=== PATIENT | female | born 1990 | race Caucasian/White ===

== ENCOUNTER 2016-11-01 11:53 | Emergency (ER) | payer OTHER ==
[~2016-11-01] VITALS: Ht 154.9 cm; Wt 48.1 kg
[2016-11-01 11:55] VITALS: TEMP 36.8; Ht 154.9 cm; Wt 48.1 kg
[2016-11-01] MEDS ORDERED: SODIUM CHLORIDE 0.9% 1000ML 1,000 ML IV STA (12:20)
[2016-11-01] MEDS ORDERED: PROMETHAZINE HCL INJ 25 MG in SODIUM CHLORIDE 0.9% 50ML 50 ML IV STA (12:20)
--- NOTE | 2016-11-01 12:21 | EMERGENCY ROOM VISIT NOTE ---
History Report prepared by Tal: Flakita Gonzalez Under the Supervision of: Dr. Cas Knight D.O. First contact with patient: 12:12 Chief Complaint: ILLNESS Stated Complaint: TESTED FOR MENINGITIS History of Present Illness The patient is a 26 year old female who presents to the Emergency Room with complaints of worsening headache beginning 2 days prior to arrival. The patient has been experiencing a migraine and neck stiffness. She also notes vomiting and nausea. She went to [place] [facility] 2 days ago and left due to the long wait. She then yesterday saw her PCP at [facility] and was told to go back to [place] ED. She went back to the ED and had testing down including CT scan. All testing was normal. This morning the patient went back to her PCP at [facility] and was told to come to ED for meningitis testing. 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 She denies fever, diarrhea, or cough. The patient is on control. Source of History: patient Onset: 2 days [employer] Position: other (global) Quality: other (headache) Timing: worsening Associated Symptoms: + nausea, + neck pain, + vomiting, No cough, No diarrhea, No fevers Review of Systems See HPI for pertinent positives & negatives. A total of 10 systems reviewed and were otherwise negative. Past Medical & Surgical Medical Problems: (1) No chronic problems Family History Patient reports no known family medical history. Social History Smoking Status: Current Every Day Smoker Smokeless Tobacco Use: No Marital Status: Housing Status: lives with roommate Occupation Status: employed Current/Historical Medications Scheduled PRN Ondansetron Hcl (Zofran), 4 MG PO Q8H PRN for Nausea Oxycodone Immediate Rel Tab (Roxicodone Ir), 1-2 TAB PO Q4H PRN for Severe Pain Oxycodone/Acetaminophen 10MG/325MG (Percocet 10MG/325MG), 1 TAB PO for Pain Miscellaneous Medications Ibuprofen (Advil), 200 MG PO Allergies Coded Allergies: No Known Allergies (Unverified , 11/01/16) Physical Exam Vital Signs Date Time Temp Pulse Resp B/P Pulse Ox O2 Delivery O2 Flow Rate FiO2 11/01/16 14:57 61 15 114/64 98 Room Air 11/01/16 13:16 62 18 119/43 98 Room Air 11/01/16 11:55 36.8 100 18 137/85 100 Room Air Physical Exam GENERAL: Patient is awake, alert, very anxious and in no acute distress. Patient is resting comfortably EYES: The conjunctivae are clear. The pupils are round and reactive. EARS, NOSE, MOUTH AND THROAT: The nose is without any evidence of any deformity. Mucous membranes are moist tongue is midline NECK: The neck is nontender and supple. RESPIRATORY: Normal respiratory effort is noted there is no evidence of wheezing rhonchi or rales CARDIOVASCULAR: Regular rate and rhythm noted there no murmurs rubs or gallops normal S1 normal S2 GASTROINTESTINAL: The abdomen is soft. Bowel sounds are present in all quadrants. Abdomen is nontender MUSCULOSKELETAL/EXTREMITIES: There is no evidence of gross deformity full range of motion is noted in the hips and shoulders SKIN: There is no obvious evidence of any rash. There are no petechiae, pallor or cyanosis noted. NEUROLOGIC: Patient is awake alert and oriented x3 strength is symmetric patellar reflexes are 2+ bilaterally Medical Decision & Procedures Laboratory Results 11/01/16 12:40 Red Blood Count 4.05, Mean Corpuscular Volume 93.8, Mean Corpuscular Hemoglobin 32.6, Mean Corpuscular Hemoglobin Concent 34.7, Mean Platelet Volume 10.4, Neutrophils (%) (Auto) 67.9, Lymphocytes (%) (Auto) 25.6, Monocytes (%) (Auto) 5.1, Eosinophils (%) (Auto) 1.0, Basophils (%) (Auto) 0.3, Neutrophils # (Auto) 4.80, Lymphocytes # (Auto) 1.81, Monocytes # (Auto) 0.36, Eosinophils # (Auto) 0.07, Basophils # (Auto) 0.02 11/01/16 12:40 Test 11/01/16 12:40 11/01/16 14:25 White Blood Count 7.07 K/uL (4.8-10.8) Red Blood Count 4.05 M/uL (4.2-5.4) Hemoglobin 13.2 g/dL (12.0-16.0) Hematocrit 38.0 % (37-47) Mean Corpuscular Volume 93.8 fL (80-100) Mean Corpuscular Hemoglobin 32.6 pg (25-34) Mean Corpuscular Hemoglobin Concent 34.7 g/dl (32-36) Platelet Count 151 K/uL (130-400) Mean Platelet Volume 10.4 fL (7.4-10.4) Neutrophils (%) (Auto) 67.9 % Lymphocytes (%) (Auto) 25.6 % Monocytes (%) (Auto) 5.1 % Eosinophils (%) (Auto) 1.0 % Basophils (%) (Auto) 0.3 % Neutrophils # (Auto) 4.80 K/uL (1.4-6.5) Lymphocytes # (Auto) 1.81 K/uL (1.2-3.4) Monocytes # (Auto) 0.36 K/uL (0.11-0.59) Eosinophils # (Auto) 0.07 K/uL (0-0.5) Basophils # (Auto) 0.02 K/uL (0-0.2) RDW Standard Deviation 41.2 fL (36.4-46.3) RDW Coefficient of Variation 12.2 % (11.5-14.5) Immature Granulocyte % (Auto) 0.1 % Immature Granulocyte # (Auto) 0.01 K/uL (0.00-0.02) Urine Color YELLOW Urine Appearance CLEAR (CLEAR) Urine pH 5.5 (4.5-7.5) Urine Specific [place] 1.013 (1.000-1.030) Urine Protein NEG (NEG) Urine Glucose (UA) NEG (NEG) Urine Ketones NEG (NEG) Urine Occult Blood NEG (NEG) Urine Nitrite NEG (NEG) Urine Bilirubin NEG (NEG) Urine Urobilinogen NEG (NEG) Urine Leukocyte Esterase TRACE (NEG) Urine WBC (Auto) 1-5 /hpf (0-5) Urine RBC (Auto) 0-4 /hpf (0-4) Urine Hyaline Casts (Auto) 1-5 /lpf (0-5) Urine Epithelial Cells (Auto) >30 /lpf (0-5) Urine Bacteria (Auto) NEG (NEG) Anion Gap 6.0 mmol/L (3-11) Est Creatinine Clear Calc Drug Dose 71.4 ml/min Estimated GFR () 102.3 Estimated GFR (Non- 88.2 BUN/Creatinine Ratio 8.3 (10-20) Calcium Level 8.5 mg/dl (8.5-10.1) Total Bilirubin 0.4 mg/dl (0.2-1) Direct Bilirubin 0.1 mg/dl (0-0.2) Aspartate Amino Transf (AST/SGOT) 13 U/L (15-37) Alanine Aminotransferase (ALT/SGPT) 17 U/L (12-78) Alkaline Phosphatase 53 U/L (45-117) Total Protein 6.8 gm/dl (6.4-8.2) Albumin 3.7 gm/dl (3.4-5.0) Lipase 93 U/L (73-393) Human Chorionic Gonadotropin, Qual NEG (NEG) CSF Color COLORLESS CSF Appearance CLEAR CSF WBC 0 /uL (0-5) CSF RBC 0 /uL (0) CSF Xanthrochromic NO XANTHOCHROMIA CSF Cell Count Tube # 4 CSF Polynuclear WBCs (%) 0.0 % CSF Glucose 47 mg/dl (40-70) CSF Total Protein 48.6 mg/dl (15.0-45.0) Laboratory results per my review. Medications Administered Medications (Trade) Dose Ordered Sig/Hair Route Start Time Stop Time Status Last Admin Dose Admin Morphine Sulfate 4 mg 4 mg Q15M PRN IV 11/01/16 12:30 11/01/16 17:06 DC 11/01/16 12:49 4 MG Promethazine HCl/ Sodium Chloride (Phenergan Inj/ Nss 50ml) 51 ml @ 204 mls/hr NOW STAT IV 11/01/16 12:20 11/01/16 12:34 DC 11/01/16 12:48 204 MLS/HR Dexamethasone Sodium Phosphate 10 mg 10 mg NOW ONCE IV 11/01/16 12:30 11/01/16 12:31 DC 11/01/16 12:48 10 MG Sodium Chloride (Nss 1000ml) 1,000 ml @ 999 mls/hr Q1H1M STAT IV 11/01/16 12:20 11/01/16 13:20 DC 11/01/16 12:48 999 MLS/HR Ketorolac Tromethamine (Toradol Inj) 30 mg NOW STAT IV 11/01/16 14:48 11/01/16 14:50 DC 11/01/16 14:57 30 MG Ondansetron HCl (Zofran Inj) 4 mg NOW STAT IV 11/01/16 14:48 11/01/16 14:50 DC 11/01/16 14:56 4 MG Procedure Lumbar Puncture Indication: Headache and neck pain. Verbal consent was obtained after the risks and benefits were explained, including but not limited to headache, bleeding/clotting, scarring, infection, pain, and bone/joint/nerve damage. At this time, the risks of the procedure are less than the risks of NOT performing the procedure. A time out was taken and the correct patient and site identified. The patient was placed in the seated position and the back was prepped with betadine and draped in the standard fashion. The L3 intervertebral space was identified, anesthetized locally with 1 % lidocaine without epinephrine, and the spinal needle was inserted through the skin with the bevel parallel to the dural fibers. The needle was carefully advanced into the lumbar cistern and 4 tubes of clear CSF was obtained. The stylet was replaced and the needle was removed. A bandaid was placed and the patient was placed in the supine position. The patient tolerated the procedure well and there were no complications. ED Course 1215: The patient was evaluated in room B7. A complete history and physical examination were performed. 1220: Sodium Chloride 1,000 ml @ 999 mls/hr IV, Promethazine HCl 25 mg/ Sodium Chloride 51 ml @ 204 mls/hr IV. 1230: Decadron Inj 10 mg IV, Morphine Sulfate Inj 4 mg IV. 1310: See procedure note for lumbar puncture. 1448: Zofran Inj 4 mg IV, Toradol Inj 30 mg IV. 1530: Upon reevaluation, the patient is hemodynamically stable. I discussed the results and treatment plan with her. She verbalized agreement of the treatment plan. She was discharged home. Medical Decision Differential diagnosis: Etiologies such as migraine headache, meningitis, sinusitis, CO exposure, ICH, SAH, infection, tumor, headache, sinus thrombosis, arterial dissection, as well as others were entertained. Nursing notes reviewed. The patient's laboratory and radiographic studies from [facility] from yesterday were reviewed. The patient is a 26-year-old female who presented to emergency department for an evaluation of headache and neck pain. The patient was seen at an outside emergency department as well as by her primary care physician recently. She was told to go to the emergency department today for possible meningitis. The patient has a history of viral meningitis. The patient was sent to the emergency department today for a lumbar puncture. The patient was treated with IV fluids IV pain medicine and IV antiemetics. She was also given IV steroids. I discussed the patient's laboratory results with her. Her lumbar puncture did not appear to be consistent with an infectious process. She had a mild elevation in her CSF protein. She was encouraged to follow-up with her family doctor this week for reevaluation and for possible neurology referral. Otherwise she was encouraged to continue all medications as prescribed drink plenty clear liquids increase her caffeine intake and return to the emergency department immediately if symptoms change worsen or the need arises. [place] Drug Monitoring Program Search Results: patient reviewed within database, no issues identified Impression Primary Impression: Headache Additional Impression: Neck pain Scribe Attestation The scribe's documentation has been prepared under my direction and personally reviewed by me in its entirety. I confirm that the note above accurately reflects all work, treatment, procedures, and medical decision making performed by me. Departure Information Dispostion Home / Self-Care Prescriptions Oxycodone Immediate Rel Tab (ROXICODONE IR) 5 Mg Tab 1-2 TAB PO Q4H Y for Severe Pain, #24 TAB Prov: Cas Knight, DO 11/01/16 Ondansetron Hcl (ZOFRAN) 4 Mg Tab 4 MG PO Q8H Y for Nausea, #20 TAB Prov: Cas Knight, DO 11/01/16 Referrals No Doctor, Assigned (PCP) Forms HOME CARE DOCUMENTATION FORM, IMPORTANT VISIT INFORMATION, WORK / SCHOOL INSTRUCTIONS Patient Instructions ED Lumbar Puncture Normal, Headache Pain, My [facility] Additional Instructions Call your family in the morning to schedule a follow-up appointment. Rest and avoid any strenuous activity. Drink plenty clear liquids. Try to increase your caffeine intake for the next 48 hours. Continue using Motrin and Tylenol as directed for mild pain. Problem Qualifiers Primary Impression: Headache Headache type: unspecified Headache chronicity pattern: acute headache Intractability: not intractable Qualified Codes: R51 - Headache
[2016-11-01] MEDS ORDERED: MoRPHine SULFATE 4 MG/ML 1 ML CARP\\VIAL IV PRN (12:30)
[2016-11-01] MEDS ORDERED: DEXAMETHASONE SOD INJ 10 MG/ML VIAL IV ONE (12:30)
[2016-11-01 13:07] LABS: BASO % 0.3 %; BASO ABS # 0.02 K/uL (0-0.2); COMPLETE YES; IG% 0.1 %; LYMPH % 25.6 %; LYMPH ABS # 1.81 K/uL (1.2-3.4); MEAN CELL VOLUME 93.8 fL (80-100); MEAN CORPUSCULAR HEMOGLOBIN 32.6 pg (25-34); MEAN CORPUSCULAR HGB CONC 34.7 g/dl (32-36); MEAN PLATELET VOLUME 10.4 fL (7.4-10.4); MONO % 5.1 %; NEUT % 67.9 %; PLATELET COUNT 151 K/uL (130-400); RED BLOOD COUNT 4.05 M/uL (4.2-5.4); WHITE BLOOD COUNT 7.07 K/uL (4.8-10.8)
[2016-11-01] MEDS ORDERED: OXYC-106 PO (13:13)
[2016-11-01] MEDS ORDERED: IBUP-1050 PO (13:13)
[2016-11-01 13:21] LABS: BUN/CREATININE RATIO 8.3 (10-20); CALCIUM 8.5 mg/dl (8.5-10.1); CREATININE 0.9 mg/dl (0.60-1.20); POTASSIUM 4.1 mmol/L (3.5-5.1)
[2016-11-01 13:22] LABS: URINE APPEARANCE CLEAR (CLEAR); URINE BILIRUBIN NEG (NEG); URINE COLOR YELLOW; URINE EPITHELIAL CELL AUTO >30 /lpf (0-5); URINE NITRITE NEG (NEG); URINE PH 5.5 (4.5-7.5); URINE SPECIFIC GRAVITY 1.013 (1.000-1.030); UROBILINOGEN NEG (NEG)
[2016-11-01 13:34] LABS: PREG INTERNAL NEGATIVE QC NEG CLEAR BACKGROUND; PREG INTERNAL POSITIVE QC POS CONTROL LINE
[2016-11-01 13:39] LABS: MANUAL MICROSCOPIC REQUIRED? NO; REVIEW REQ? NO
[2016-11-01] MEDS ORDERED: KETOROLAC TROMETHAMINE 30 MG/ML VIAL IV STA (14:48)
[2016-11-01] MEDS ORDERED: ONDANSETRON INJ 2 MG/ML 2 ML VIAL IV STA (14:48)
[2016-11-01 14:50] LABS: CSF TOTAL PROTEIN 48.6 mg/dl (15.0-45.0)
[2016-11-01 14:57] VITALS: BP 114/64; PULSE 61; O2SAT 98
[2016-11-01 15:07] LABS: CSF APPEARANCE CLEAR; CSF COLOR COLORLESS; CSF XANTHOCHROMIC NO XANTHOCHROMIA
[2016-11-01] MEDS ORDERED: OXYC1TAB3 PO (15:28)
[2016-11-01] MEDS ORDERED: ONDA4TAB46 PO (15:28)
[2016-11-01 17:20] LABS: CSF CHEMISTRY TUBE # 2
== END 2016-11-01 15:39 | disposition home or self-care (01) ==
LOC: C.EDB 11:55
DX: R51 Headache (principal); M54.2 Cervicalgia; F17.200 Nicotine dependence, unspecified, uncomplicated